=== PATIENT | male | born 1965 | race American Indian/Alaskan Native ===

== ENCOUNTER 2017-01-13 02:43 | Emergency (ER) | payer OTHER ==
[2017-01-13 03:12] VITALS: BP 130/80; RESP 20; TEMP 98
--- NOTE | 2017-01-13 04:47 | C.PDOC ---
History Of Present Illness 51 year old male presents to the ED after he saw pinkish semen in his condom after intercourse yesterday at 07:00 am. Patient denies any overzealous/ strenuous intercourse, penile discharge, scrotal or testicular pain, urinary symptoms. Patient has no concern for STIs, sts he is with a single partner. denies fever, abdominal and rectal pain. Time Seen by Provider: 01/13/17 03:14 Chief Complaint (Nursing): Male Genitourinary History Per: Patient History/Exam Limitations: no limitations Onset/Duration Of Symptoms: Days Current Symptoms Are (Timing): Still Present Associated Symptoms: denies: Urinary Symptoms, Other (Penile discharge) Alleviating Factors: None Recent travel outside of the [place]: No Past Medical History Reviewed: Historical Data, Nursing Documentation, Vital Signs Vital Signs: Last Vital Signs Temp 98 F 01/13/17 05:19 Pulse 82 01/13/17 05:19 Resp 20 01/13/17 05:19 BP 130/80 01/13/17 05:19 Pulse Ox 100 01/15/17 22:06 - Medical History PMH: No Chronic Diseases Surgical History: No Surg Hx Family History: States: Unknown Family Hx - Social History Hx Alcohol Use: Yes Hx Substance Use: Yes - Immunization History Hx Tetanus Toxoid Vaccination: No Hx Influenza Vaccination: No Hx Pneumococcal Vaccination: No Review Of Systems Constitutional: Negative for: Fever, Chills Genitourinary: Positive for: Other (pinkish semen). Negative for: Dysuria, Penile Discharge, Scrotal Pain, Penile Pain Physical Exam - Physical Exam Appears: Non-toxic, No Acute Distress Skin: Warm, Dry Head: Atraumatic, Normacephalic Cardiovascular: Rhythm Regular Respiratory: Normal Breath Sounds, No Rales, No Rhonchi, No Wheezing Gastrointestinal/Abdominal: Soft, No Tenderness Back: No CVA Tenderness Male Genital: No Testicular Tenderness, No Testicular Swelling, No Scrotal Swelling, Circumcised (no urethra discharge), No Other (chaperoned by RADHA Tran.) Neurological/Psych: Oriented x3, Normal Speech, Normal Cognition ED Course And Treatment O2 Sat by Pulse Oximetry: 100 (Room air) Pulse Ox Interpretation: Normal Medical Decision Making Medical Decision Making: pt with one episode of hematospermia, Plan: urinalysis 504 am d/c with gu f/u Disposition Counseled Patient/Family Regarding: Studies Performed, Diagnosis, Need For Followup, Rx Given - Disposition Referrals: David Ugalde MD [Staff Provider] - Irene Flores MD [Staff Provider] - Disposition: HOME/ ROUTINE Disposition Time: 05:06 Condition: STABLE Additional Instructions: Avoid strenous activity for next few days. Follow up with Dr Ugalde from urology. Instructions: Acute Hematuria (ED) Forms: [facility] ([place]), General Discharge Instructions - Clinical Impression Clinical Impression: Hematuria - Scribe Statement The provider has reviewed the documentation as recorded by the Scribe Galindo Da Silva All medical record entries made by the Scribe were at my direction and personally dictated by me. I have reviewed the chart and agree that the record accurately reflects my personal performance of the history, physical exam, medical decision making, and the department course for this patient. I have also personally directed, reviewed, and agree with the discharge instructions and disposition.
[2017-01-13 04:49] LABS: RBC URINE 2 /hpf (0-3); URINE BILIRUBIN NEGATIVE (NEGATIVE); URINE BLOOD 1+ (NEGATIVE); URINE COLOR Yellow (YELLOW); URINE GLUCOSE (UA) NORMAL (Normal); URINE KETONE NEGATIVE (NEGATIVE); URINE LEUKOCYTE ESTERASE NEG Leu/uL (Negative); URINE PROTEIN NEGATIVE (NEGATIVE); WBC URINE 1 /hpf (0-5)
[2017-01-13 05:20] VITALS: PULSE 82
[2017-01-13 05:24] VITALS: O2SAT 100
== END 2017-01-13 05:18 | disposition home or self-care (01) ==
LOC: C.ER 02:43
DX: R31.9 Hematuria, unspecified (principal)